=== PATIENT | male | born 1985 | race Two or more races ===

== ENCOUNTER 2017-05-31 20:02 | Inpatient (IN) | payer SELFPAY ==
[2017-05-31] MEDS: ONDANSETRON PF 4 MG/2 ML VIAL. IV ×2 (20:30→21:10)
[2017-05-31 20:33] LABS: BILIRUBIN,URINE NEGATIVE (NEG); CLARITY,URINE CLEAR; COLOR,URINE YELLOW; GLUCOSE,URINE >=1000 mg/dL (NEG); NITRITE,URINE NEGATIVE (NEG); PROTEIN,URINE NEGATIVE (NEG-TRACE); UROBILINOGEN,URINE 0.2 mg/dL (0.2 mg/dL)
[2017-05-31 20:38] LABS: BACTERIA,URINE 0 /HPF (0-FEW); RBC,URINE 0 /HPF (0-2); WBC,URINE 0 /HPF (0-4)
[2017-05-31 21:05] LABS: ADD MAN DIFF? NO
[2017-05-31 21:08] LABS: BASO % 0 % (0-3); EOS # 0.1 x10^3/uL (0.0-0.7); EOS % 1 % (0-3); HEMATOCRIT 43.7 % (39.0-53.0); HEMOGLOBIN 14.6 g/dL (13.0-17.5); LYMPH % 24 % (24-48); MEAN CORPUSCULAR HEMOGLOBIN 30 pg (25-35); MEAN CORPUSCULAR HGB CONC 33 g/dL (31-37); MEAN CORPUSCULAR VOLUME 88 fL (79-100); MONO # 0.6 x10^3/uL (0.0-1.1); MONO % 7 % (0-9); NEUT # 5.4 x10^3uL (1.8-7.7); NEUT % 67 % (31-73); PLATELET COUNT 245 x10^3/uL (140-400); RED BLOOD COUNT 4.94 x10^6/uL (4.30-5.70); RED CELL DISTRIBUTION WIDTH 14.2 % (11.5-14.5); WHITE BLOOD COUNT 8.1 x10^3/uL (4.0-11.0)
[2017-05-31] MEDS: PANTOPRAZOLE IV PUSH 40 MG VIAL. IVP (21:10)
[2017-05-31] MEDS: LIDO:MAALOX:DONNATAL 1:1:1 15 ML SINGLE DOSE SWSW (21:10)
[2017-05-31] MEDS: MORPHINE SULFATE 4 MG/ML DISP.SYRIN. IV (21:11)
[2017-05-31] MEDS: IV NORMAL SALINE 1000ML BAG 1,000 ML IV ×2 (21:12→22:59)
[2017-05-31 21:14] LABS: ANION GAP 9 (6-14); BLOOD UREA NITROGEN 23 mg/dL (8-26); BUN/CREATININE RATIO 26 (6-20); CALCIUM 9.1 mg/dL (8.5-10.1); CARBON DIOXIDE 26 mmol/L (21-32); CHLORIDE 102 mmol/L (98-107); CREATININE 0.9 mg/dL (0.7-1.3); GFR 99.1; GLUCOSE 308 mg/dL (70-99); POTASSIUM 4.4 mmol/L (3.5-5.1); SODIUM 137 mmol/L (136-145)
[2017-05-31 21:21] LABS: ALBUMIN 3.9 g/dL (3.4-5.0); ALBUMIN/GLOBULIN RATIO 1.1 (1.0-1.7); ALK PHOS 110 U/L (46-116); ALT (SGPT) 215 U/L (16-63); AST (SGOT) 242 U/L (15-37); LIPASE 89 U/L (73-393); TOTAL PROTEIN 7.6 g/dL (6.4-8.2)
[2017-05-31] MEDS ORDERED: ACETAMINOPHEN 325 MG TABLET. PO (22:30)
[2017-05-31] MEDS ORDERED: PIP/TAZO PER PHARMACY MC (22:30)
[2017-05-31] MEDS: PIPERACILLIN/TAZOBACTAM 3.375 GM in IV NORMAL SALINE 50ML 50 ML IV (22:59)
[2017-05-31 23:56] LABS: POC GLUCOSE 268 mg/dL (70-99)
[2017-06-01] MEDS: fentaNYL PF VIAL 100 MCG/2 ML VIAL IV ×5 (00:24→18:36)
[2017-06-01] MEDS: PIPERACILLIN/TAZOBACTAM 3.375 GM in IV NORMAL SALINE 50ML 50 ML IV ×3 (05:27→20:58)
[2017-06-01] MEDS: IV NORMAL SALINE 1000ML BAG 1,000 ML IV ×2 (05:28→14:21)
[2017-06-01 07:51] LABS: ADD MAN DIFF? NO
[2017-06-01 07:57] LABS: BASO % 1 % (0-3); EOS # 0.1 x10^3/uL (0.0-0.7); EOS % 2 % (0-3); HEMATOCRIT 41.8 % (39.0-53.0); HEMOGLOBIN 13.9 g/dL (13.0-17.5); LYMPH # 1.7 x10^3/uL (1.0-4.8); LYMPH % 35 % (24-48); MEAN CORPUSCULAR HEMOGLOBIN 30 pg (25-35); MEAN CORPUSCULAR HGB CONC 33 g/dL (31-37); MEAN CORPUSCULAR VOLUME 89 fL (79-100); MONO # 0.4 x10^3/uL (0.0-1.1); MONO % 8 % (0-9); NEUT # 2.6 x10^3uL (1.8-7.7); NEUT % 55 % (31-73); PLATELET COUNT 229 x10^3/uL (140-400); RED BLOOD COUNT 4.69 x10^6/uL (4.30-5.70); RED CELL DISTRIBUTION WIDTH 14.2 % (11.5-14.5); WHITE BLOOD COUNT 4.8 x10^3/uL (4.0-11.0)
[2017-06-01 08:09] LABS: ANION GAP 8 (6-14); BLOOD UREA NITROGEN 17 mg/dL (8-26); CALCIUM 8.3 mg/dL (8.5-10.1); CARBON DIOXIDE 25 mmol/L (21-32); CHLORIDE 105 mmol/L (98-107); CREATININE 0.7 mg/dL (0.7-1.3); GFR 132.4; GLUCOSE 221 mg/dL (70-99); POTASSIUM 4.2 mmol/L (3.5-5.1); SODIUM 138 mmol/L (136-145)
[2017-06-01] MEDS: ONDANSETRON PF 4 MG/2 ML VIAL. IV ×2 (08:27→14:11)
[2017-06-01] MEDS: LACTOBACILLUS RHAMNOSUS GG 1 CAPSULE. PO ×2 (09:00→21:01)
[2017-06-01 11:53] LABS: POC GLUCOSE 183 mg/dL (70-99)
[2017-06-01 11:53] LABS: POC GLUCOSE 209 mg/dL (70-99)
[2017-06-01] MEDS ORDERED: LIDOCAINE 1% PF 2 ML VIAL. ID (12:00)
[2017-06-01] MEDS ORDERED: fentaNYL PF VIAL 100 MCG/2 ML VIAL IV (12:00)
[2017-06-01] MEDS ORDERED: ONDANSETRON PF 4 MG/2 ML VIAL. IV ×2 (12:00→13:15)
[2017-06-01] MEDS ORDERED: NON FORMULARY ITEM (Melatonin 3 MG) PO (13:00)
[2017-06-01] MEDS ORDERED: traMADol 50 MG TABLET PO (13:15)
[2017-06-01] MEDS ORDERED: DEXTROSE 50% 25 GM / 50ML DISP.SYRIN. IV ×2 (13:15→18:15)
[2017-06-01] MEDS ORDERED: ACETAMINOPHEN 325 MG TABLET. PO (13:15)
[2017-06-01] MEDS ORDERED: hydrALAZINE 20 MG/ML VIAL. IVP (13:15)
[2017-06-01] MEDS: carBAMazepine 200 MG TABLET PO ×2 (14:00→20:56)
[2017-06-01] MEDS ORDERED: PNEUMOCOCCAL VAX SCREEN BY RX. MC (14:00)
[2017-06-01] MEDS: LISINOPRIL 10 MG TABLET PO (14:00)
[2017-06-01] MEDS: MORPHINE SULFATE 4 MG/ML DISP.SYRIN. IV ×3 (14:11→19:00)
[2017-06-01] MEDS ORDERED: SURGICEL HEMOSTAT 4X8 EACH. (15:30)
[2017-06-01] MEDS ORDERED: fentaNYL PF VIAL 100 MCG/2 ML VIAL (15:40)
[2017-06-01] MEDS ORDERED: PROPOFOL 20 ML IV (15:40)
[2017-06-01] MEDS ORDERED: ROCURONIUM 50 MG/5 ML VIAL. (15:40)
[2017-06-01] MEDS ORDERED: SUCCINYLCHOLINE 200 MG/10 ML VIAL. (15:40)
[2017-06-01] MEDS: IV RINGERS,LACTATED 1000ML 1,000 ML IV (16:08)
[2017-06-01 16:14] LABS: POC GLUCOSE 166 mg/dL (70-99)
[2017-06-01] MEDS ORDERED: INSULIN ASPART 300 UNITS/3 ML INSULN.PEN SQ (16:30)
[2017-06-01 16:31] LABS: POC GLUCOSE 162 mg/dL (70-99)
[2017-06-01] MEDS ORDERED: DEXAMETHASONE SOD PHOS 20 MG/5 ML VIAL. (16:57)
[2017-06-01] MEDS ORDERED: DESFLURANE 31 TO 60 MINUTES IH (16:57)
[2017-06-01] MEDS ORDERED: diphenhydrAMINE 50 MG/ML VIAL ×2 (16:57→17:10)
[2017-06-01] MEDS ORDERED: ONDANSETRON PF 4 MG/2 ML VIAL. (16:57)
[2017-06-01] MEDS: IOHEXOL 300 MG/ML 100ML VIAL. (16:58)
[2017-06-01] MEDS: BUPIVACAINE-EPI 0.25%-1:200000 50 ML VIAL. (16:58)
[2017-06-01] MEDS: GLUCAGON,HUMAN RECOMBINANT 1 MG/ML VIAL. (16:58)
[2017-06-01] MEDS: INSULIN ASPART 300 UNITS/3 ML INSULN.PEN SQ (17:00)
[2017-06-01] MEDS ORDERED: GLYCOPYRROLATE 1 MG/5 ML VIAL. (17:07)
[2017-06-01 18:10] LABS: POC GLUCOSE 209 mg/dL (70-99)
[2017-06-01] MEDS ORDERED: 0.9 % SODIUM CHLORIDE 10 ML DISP.SYRIN. IV (18:15)
[2017-06-01] MEDS: PROCHLORPERAZINE 10 MG/2 ML VIAL. IV (18:17)
[2017-06-01] MEDS: HYDROmorphone 2 MG/ML VIAL IV ×5 (18:25→20:02)
[2017-06-01] MEDS: INSULIN ASPART 100 UNIT/ML 10ML VIAL. SQ (18:45)
[2017-06-01] MEDS ORDERED: INSULIN REGULAR 100 UNIT/ML 3ML VIAL. IV (18:45)
[2017-06-01] MEDS: oxyCODONE/APAP 5/325 1 TAB TABLET PO (20:56)
[2017-06-01] MEDS: DOCUSATE SODIUM 100 MG CAPSULE. PO (20:57)
[2017-06-01] MEDS: diphenhydrAMINE 50 MG/ML VIAL IV (20:57)
[2017-06-01] MEDS: INSULIN GLARGINE 300 UNITS/3 ML INSULN.PEN. SQ (21:00)
[2017-06-01] MEDS ORDERED: NON FORMULARY ITEM (Insulin Detemir (Levemir) 12 UNIT) SQ (21:00)
[2017-06-01 21:04] LABS: POC GLUCOSE 176 mg/dL (70-99)
[2017-06-01] MEDS: diphenhydrAMINE HCL 25 MG CAPSULE PO (21:13)
[2017-06-02] MEDS: PIPERACILLIN/TAZOBACTAM 3.375 GM in IV NORMAL SALINE 50ML 50 ML IV ×5 (00:08→22:57)
[2017-06-02] MEDS: oxyCODONE/APAP 5/325 1 TAB TABLET PO ×4 (01:39→21:33)
[2017-06-02 04:25] LABS: ADD MAN DIFF? NO
[2017-06-02 04:29] LABS: BASO % 0 % (0-3); EOS % 0 % (0-3); HEMATOCRIT 40.9 % (39.0-53.0); HEMOGLOBIN 13.8 g/dL (13.0-17.5); LYMPH % 15 % (24-48); MEAN CORPUSCULAR HEMOGLOBIN 30 pg (25-35); MEAN CORPUSCULAR HGB CONC 34 g/dL (31-37); MEAN CORPUSCULAR VOLUME 89 fL (79-100); MONO # 0.3 x10^3/uL (0.0-1.1); MONO % 4 % (0-9); NEUT # 5.8 x10^3uL (1.8-7.7); NEUT % 81 % (31-73); PLATELET COUNT 213 x10^3/uL (140-400); RED BLOOD COUNT 4.58 x10^6/uL (4.30-5.70); RED CELL DISTRIBUTION WIDTH 13.9 % (11.5-14.5); WHITE BLOOD COUNT 7.1 x10^3/uL (4.0-11.0)
[2017-06-02 04:55] LABS: ANION GAP 7 (6-14); BLOOD UREA NITROGEN 16 mg/dL (8-26); CALCIUM 9.2 mg/dL (8.5-10.1); CARBON DIOXIDE 28 mmol/L (21-32); CHLORIDE 102 mmol/L (98-107); CREATININE 0.9 mg/dL (0.7-1.3); GFR 99.1; GLUCOSE 299 mg/dL (70-99); POTASSIUM 4.5 mmol/L (3.5-5.1); SODIUM 137 mmol/L (136-145)
[2017-06-02 05:01] LABS: ALBUMIN 3.3 g/dL (3.4-5.0); ALK PHOS 119 U/L (46-116); ALT (SGPT) 526 U/L (16-63); AST (SGOT) 208 U/L (15-37); DIRECT BILIRUBIN 1.6 mg/dL (0.0-0.2); LIPASE 63 U/L (73-393); TOTAL PROTEIN 6.3 g/dL (6.4-8.2)
[2017-06-02 07:53] LABS: POC GLUCOSE 238 mg/dL (70-99)
[2017-06-02] MEDS: LISINOPRIL 10 MG TABLET PO (07:56)
[2017-06-02] MEDS: carBAMazepine 200 MG TABLET PO ×2 (07:57→21:35)
[2017-06-02] MEDS: DOCUSATE SODIUM 100 MG CAPSULE. PO ×2 (07:57→21:33)
[2017-06-02] MEDS: LACTOBACILLUS RHAMNOSUS GG 1 CAPSULE. PO ×2 (07:58→21:33)
[2017-06-02] MEDS: ENOXAPARIN 40 MG/0.4 ML SYRINGE. SQ (07:59)
[2017-06-02] MEDS: INSULIN ASPART 300 UNITS/3 ML INSULN.PEN SQ ×3 (08:06→17:31)
[2017-06-02] MEDS ORDERED: ENOXAPARIN 40 MG/0.4 ML SYRINGE. SQ (09:00)
[2017-06-02 10:22] LABS: INR 1.1 (0.8-1.1); PROTHROMBIN TIME PATIENT 13.2 SEC (11.7-14.0)
[2017-06-02] MEDS: MORPHINE SULFATE 4 MG/ML DISP.SYRIN. IV ×2 (11:04→15:57)
[2017-06-02] MEDS: PANTOPRAZOLE IV PUSH 40 MG VIAL. IVP (11:04)
[2017-06-02 11:49] LABS: POC GLUCOSE 217 mg/dL (70-99)
[2017-06-02] MEDS: PNEUMOC CONJ VACC 23-VALENT 0.5 ML VIAL. VAX IM (11:56)
[2017-06-02] MEDS: ONDANSETRON PF 4 MG/2 ML VIAL. IV ×2 (14:12→20:23)
[2017-06-02 17:15] LABS: POC GLUCOSE 152 mg/dL (70-99)
[2017-06-02] MEDS: INSULIN GLARGINE 300 UNITS/3 ML INSULN.PEN. SQ (21:00)
[2017-06-02 21:03] LABS: POC GLUCOSE 155 mg/dL (70-99)
[2017-06-02] MEDS: PROCHLORPERAZINE 10 MG/2 ML VIAL. IM (22:49)
[2017-06-02] MEDS: SIMETHICONE 80 MG TAB.CHEW PO (22:50)
[2017-06-03] MEDS: PIPERACILLIN/TAZOBACTAM 3.375 GM in IV NORMAL SALINE 50ML 50 ML IV ×3 (05:36→18:34)
[2017-06-03] MEDS: IV RINGERS,LACTATED 1000ML 1,000 ML IV (05:37)
[2017-06-03] MEDS ORDERED: fentaNYL PF VIAL 100 MCG/2 ML VIAL IV ×2 (07:00)
[2017-06-03] MEDS ORDERED: ONDANSETRON PF 4 MG/2 ML VIAL. IV (07:00)
[2017-06-03] MEDS ORDERED: PROCHLORPERAZINE 10 MG/2 ML VIAL. IV (07:00)
[2017-06-03] MEDS ORDERED: MORPHINE SULFATE 4 MG/ML DISP.SYRIN. IV (07:00)
[2017-06-03] MEDS ORDERED: LIDOCAINE 1% PF 2 ML VIAL. ID (07:00)
[2017-06-03 07:30] LABS: POC GLUCOSE 156 mg/dL (70-99)
[2017-06-03] MEDS: INSULIN ASPART 300 UNITS/3 ML INSULN.PEN SQ ×3 (08:00→18:03)
[2017-06-03] MEDS: DOCUSATE SODIUM 100 MG CAPSULE. PO ×2 (08:44→21:16)
[2017-06-03] MEDS: ENOXAPARIN 40 MG/0.4 ML SYRINGE. SQ (09:00)
[2017-06-03] MEDS: LACTOBACILLUS RHAMNOSUS GG 1 CAPSULE. PO ×2 (09:00→21:16)
[2017-06-03] MEDS: POLYETHYLENE GLYCOL 3350 17 GM PACKET. PO (09:00)
[2017-06-03] MEDS: PANTOPRAZOLE IV PUSH 40 MG VIAL. IVP (09:04)
[2017-06-03] MEDS: MORPHINE SULFATE 4 MG/ML DISP.SYRIN. IV ×4 (09:04→22:42)
[2017-06-03 09:08] LABS: ADD MAN DIFF? NO
[2017-06-03] MEDS: ONDANSETRON PF 4 MG/2 ML VIAL. IV ×2 (09:28→15:34)
[2017-06-03 09:29] LABS: BASO % 0 % (0-3); EOS # 0.1 x10^3/uL (0.0-0.7); EOS % 1 % (0-3); HEMATOCRIT 40.8 % (39.0-53.0); HEMOGLOBIN 13.5 g/dL (13.0-17.5); LYMPH # 1.6 x10^3/uL (1.0-4.8); LYMPH % 25 % (24-48); MEAN CORPUSCULAR HEMOGLOBIN 30 pg (25-35); MEAN CORPUSCULAR HGB CONC 33 g/dL (31-37); MEAN CORPUSCULAR VOLUME 89 fL (79-100); MONO # 0.4 x10^3/uL (0.0-1.1); MONO % 7 % (0-9); NEUT # 4.1 x10^3uL (1.8-7.7); NEUT % 67 % (31-73); PLATELET COUNT 210 x10^3/uL (140-400); RED BLOOD COUNT 4.57 x10^6/uL (4.30-5.70); RED CELL DISTRIBUTION WIDTH 14.1 % (11.5-14.5); WHITE BLOOD COUNT 6.2 x10^3/uL (4.0-11.0)
[2017-06-03 10:24] LABS: HCV ANTIBODY <0.1 s/co ratio (0.0-0.9); HEP A IGM ABDY Negative (Negative); HEP B SURFACE AG Negative (Negative)
[2017-06-03 10:37] LABS: ALBUMIN 3.2 g/dL (3.4-5.0); ALBUMIN/GLOBULIN RATIO 0.9 (1.0-1.7); ALK PHOS 134 U/L (46-116); ALT (SGPT) 456 U/L (16-63); ANION GAP 11 (6-14); AST (SGOT) 166 U/L (15-37); BLOOD UREA NITROGEN 8 mg/dL (8-26); BUN/CREATININE RATIO 11 (6-20); CALCIUM 8.5 mg/dL (8.5-10.1); CARBON DIOXIDE 27 mmol/L (21-32); CHLORIDE 104 mmol/L (98-107); CREATININE 0.7 mg/dL (0.7-1.3); GFR 132.4; GLUCOSE 165 mg/dL (70-99); POTASSIUM 3.7 mmol/L (3.5-5.1); SODIUM 142 mmol/L (136-145); TOTAL BILIRUBIN 3.8 mg/dL (0.2-1.0); TOTAL PROTEIN 6.6 g/dL (6.4-8.2)
[2017-06-03 11:34] LABS: POC GLUCOSE 135 mg/dL (70-99)
[2017-06-03] MEDS: carBAMazepine 200 MG TABLET PO ×2 (13:37→21:16)
[2017-06-03 14:00] LABS: POC GLUCOSE 152 mg/dL (70-99)
[2017-06-03] MEDS: LISINOPRIL 10 MG TABLET PO (14:28)
[2017-06-03 16:36] LABS: POC GLUCOSE 269 mg/dL (70-99)
[2017-06-03] MEDS: PROCHLORPERAZINE 10 MG/2 ML VIAL. IV (21:21)
[2017-06-03] MEDS: INSULIN GLARGINE 300 UNITS/3 ML INSULN.PEN. SQ (21:27)
[2017-06-03] MEDS: oxyCODONE/APAP 5/325 1 TAB TABLET PO (22:38)
[2017-06-04] MEDS: PIPERACILLIN/TAZOBACTAM 3.375 GM in IV NORMAL SALINE 50ML 50 ML IV ×4 (00:40→16:49)
[2017-06-04 04:47] LABS: ADD MAN DIFF? NO
[2017-06-04 04:55] LABS: BASO % 0 % (0-3); EOS # 0.1 x10^3/uL (0.0-0.7); EOS % 2 % (0-3); HEMATOCRIT 37.1 % (39.0-53.0); HEMOGLOBIN 12.6 g/dL (13.0-17.5); LYMPH # 2.1 x10^3/uL (1.0-4.8); LYMPH % 41 % (24-48); MEAN CORPUSCULAR HEMOGLOBIN 30 pg (25-35); MEAN CORPUSCULAR HGB CONC 34 g/dL (31-37); MEAN CORPUSCULAR VOLUME 89 fL (79-100); MONO # 0.4 x10^3/uL (0.0-1.1); MONO % 7 % (0-9); NEUT # 2.6 x10^3uL (1.8-7.7); NEUT % 50 % (31-73); PLATELET COUNT 207 x10^3/uL (140-400); RED BLOOD COUNT 4.16 x10^6/uL (4.30-5.70); RED CELL DISTRIBUTION WIDTH 14.3 % (11.5-14.5); WHITE BLOOD COUNT 5.2 x10^3/uL (4.0-11.0)
[2017-06-04 05:23] LABS: ALBUMIN 2.9 g/dL (3.4-5.0); ALBUMIN/GLOBULIN RATIO 0.9 (1.0-1.7); ALK PHOS 147 U/L (46-116); ALT (SGPT) 343 U/L (16-63); ANION GAP 5 (6-14); AST (SGOT) 72 U/L (15-37); BLOOD UREA NITROGEN 7 mg/dL (8-26); BUN/CREATININE RATIO 9 (6-20); CALCIUM 8.7 mg/dL (8.5-10.1); CARBON DIOXIDE 31 mmol/L (21-32); CHLORIDE 105 mmol/L (98-107); CREATININE 0.8 mg/dL (0.7-1.3); GFR 113.5; GLUCOSE 134 mg/dL (70-99); POTASSIUM 3.5 mmol/L (3.5-5.1); SODIUM 141 mmol/L (136-145); TOTAL PROTEIN 6.3 g/dL (6.4-8.2)
[2017-06-04] MEDS: MORPHINE SULFATE 4 MG/ML DISP.SYRIN. IV (05:58)
[2017-06-04 07:46] LABS: POC GLUCOSE 107 mg/dL (70-99)
[2017-06-04] MEDS: DOCUSATE SODIUM 100 MG CAPSULE. PO ×3 (07:55→20:51)
[2017-06-04] MEDS: INSULIN ASPART 300 UNITS/3 ML INSULN.PEN SQ ×3 (07:55→16:55)
[2017-06-04] MEDS: LACTOBACILLUS RHAMNOSUS GG 1 CAPSULE. PO ×3 (07:56→20:51)
[2017-06-04] MEDS: POLYETHYLENE GLYCOL 3350 17 GM PACKET. PO ×2 (07:56→16:39)
[2017-06-04] MEDS: PANTOPRAZOLE IV PUSH 40 MG VIAL. IVP (08:01)
[2017-06-04] MEDS: ENOXAPARIN 40 MG/0.4 ML SYRINGE. SQ (09:00)
[2017-06-04] MEDS: LISINOPRIL 10 MG TABLET PO (09:00)
[2017-06-04] MEDS ORDERED: DEXAMETHASONE SOD PHOS 20 MG/5 ML VIAL. (09:32)
[2017-06-04] MEDS ORDERED: ONDANSETRON PF 4 MG/2 ML VIAL. (09:32)
[2017-06-04] MEDS ORDERED: SUCCINYLCHOLINE 200 MG/10 ML VIAL. (09:32)
[2017-06-04] MEDS ORDERED: PROPOFOL 20 ML IV (09:32)
[2017-06-04] MEDS ORDERED: LIDOCAINE 1% PF 5 ML VIAL. (09:32)
[2017-06-04] MEDS ORDERED: IOHEXOL 300 MG/ML 100ML VIAL. (09:36)
[2017-06-04] MEDS: IOHEXOL 300 MG/ML 50 ML VIAL. INT CAT (10:06)
[2017-06-04] MEDS: oxyCODONE/APAP 5/325 1 TAB TABLET PO ×3 (12:11→20:52)
[2017-06-04] MEDS: carBAMazepine 200 MG TABLET PO ×2 (12:12→20:51)
[2017-06-04 12:18] LABS: POC GLUCOSE 115 mg/dL (70-99)
[2017-06-04] MEDS: SIMETHICONE 80 MG TAB.CHEW PO (16:40)
[2017-06-04 16:47] LABS: POC GLUCOSE 246 mg/dL (70-99)
[2017-06-04] MEDS: ONDANSETRON PF 4 MG/2 ML VIAL. IV (19:55)
[2017-06-04] MEDS: INSULIN GLARGINE 300 UNITS/3 ML INSULN.PEN. SQ (20:56)
[2017-06-04 20:57] LABS: POC GLUCOSE 222 mg/dL (70-99)
[2017-06-05] MEDS: PIPERACILLIN/TAZOBACTAM 3.375 GM in IV NORMAL SALINE 50ML 50 ML IV ×4 (00:09→17:04)
[2017-06-05] MEDS: oxyCODONE/APAP 5/325 1 TAB TABLET PO ×4 (01:46→14:43)
[2017-06-05 03:18] LABS: POC GLUCOSE 216 mg/dL (70-99)
[2017-06-05] MEDS: ONDANSETRON ODT 4 MG TAB.RAPDIS. PO ×2 (06:33→14:55)
[2017-06-05] MEDS: PANTOPRAZOLE IV PUSH 40 MG VIAL. IVP (07:38)
[2017-06-05] MEDS: ONDANSETRON PF 4 MG/2 ML VIAL. IV (07:43)
[2017-06-05 07:55] LABS: POC GLUCOSE 320 mg/dL (70-99)
[2017-06-05] MEDS: INSULIN ASPART 300 UNITS/3 ML INSULN.PEN SQ ×3 (08:03→17:15)
[2017-06-05] MEDS: LACTOBACILLUS RHAMNOSUS GG 1 CAPSULE. PO (08:55)
[2017-06-05] MEDS: DOCUSATE SODIUM 100 MG CAPSULE. PO (08:55)
[2017-06-05] MEDS: LISINOPRIL 10 MG TABLET PO (08:55)
[2017-06-05] MEDS: carBAMazepine 200 MG TABLET PO (08:55)
[2017-06-05] MEDS: ENOXAPARIN 40 MG/0.4 ML SYRINGE. SQ (08:56)
[2017-06-05 11:31] LABS: POC GLUCOSE 204 mg/dL (70-99)
[2017-06-05 16:20] LABS: POC GLUCOSE 185 mg/dL (70-99)
== END 2017-06-05 17:41 | disposition home or self-care (01) | DRG 419 ==
LOC: ER 20:02 → 5 NORTH 21:11
PROC: 0FT44ZZ Resection of Gallbladder, Percutaneous Endoscopic Approach (ICD-10-PCS; principal; 2017-06-01 15:00)
PROC: BF131ZZ Fluoroscopy of Gallbladder and Bile Ducts using Low Osmolar Contrast (ICD-10-PCS; 2017-06-01 15:00)
PROC: 0F798ZZ Dilation of Common Bile Duct, Via Natural or Artificial Opening Endoscopic (ICD-10-PCS; 2017-06-01 16:43)
DX: K80.00 Calculus of gallbladder with acute cholecystitis without obstruction (principal); E10.9 Type 1 diabetes mellitus without complications; F15.10 Other stimulant abuse, uncomplicated; F17.210 Nicotine dependence, cigarettes, uncomplicated; G43.909 Migraine, unspecified, not intractable, without status migrainosus; G50.0 Trigeminal neuralgia; I10 Essential (primary) hypertension; F12.10 Cannabis abuse, uncomplicated; K21.9 Gastro-esophageal reflux disease without esophagitis; K66.0 Peritoneal adhesions (postprocedural) (postinfection); Z79.4 Long term (current) use of insulin; Z80.1 Family history of malignant neoplasm of trachea, bronchus and lung; Z82.49 Family history of ischemic heart disease and other diseases of the circulatory system; Z83.3 Family history of diabetes mellitus; Z88.8 Allergy status to other drugs, medicaments and biological substances; Z88.6 Allergy status to analgesic agent; Z91.041 Radiographic dye allergy status; Z90.49 Acquired absence of other specified parts of digestive tract
CPT/HCPCS: 36415; 74176; 74300; 74328; 76705; 80048; 80053; 80074; 80076; 81001; 82962; 83690; 85025; 85610; 88304; 90732; 96374; 96375; 99285; 99285-25; C1726; C9113; J0330; J0690; J0780; J1100; J1170; J1200; J1610; J1650; J1815; J2270; J2405; J2543; J2704; J3010; J3490; J7030; J7120; Q0162; Q0163; Q9967

== ENCOUNTER 2017-09-21 13:33 | Emergency (ER) | payer SELFPAY | END 2017-09-21 15:46 | disposition home or self-care (01) | LOC: ER 15:46 | DX: S60.031A Contusion of right middle finger without damage to nail, initial encounter (principal); G43.909 Migraine, unspecified, not intractable, without status migrainosus; E11.40 Type 2 diabetes mellitus with diabetic neuropathy, unspecified; Z88.5 Allergy status to narcotic agent; Z88.8 Allergy status to other drugs, medicaments and biological substances; Z91.041 Radiographic dye allergy status; W23.0XXA Caught, crushed, jammed, or pinched between moving objects, initial encounter; Y93.89 Activity, other specified; Y99.8 Other external cause status; Y92.89 Other specified places as the place of occurrence of the external cause | CPT/HCPCS: 73130; 99284 ==

== ENCOUNTER 2019-06-06 08:29 | Emergency (ER) | payer BC ==
[~2019-06-06] VITALS: Ht 188 cm; Wt 130.0 kg
[~2019-06-06 08:29] MED LIST: ACET500T68 PO; AMOX1TAB58 PO; CARB200T PO; DIPH50CA PO; GUAI600T47 PO; IBUP100O25 PO; INSU100I17 SQ; INSU100V13 SQ; LISI10TA2 PO; MELA3TAB4 PO
[2019-06-06 08:35] VITALS: BP 156/90
[2019-06-06] MEDS ORDERED: KETOROLAC 60 MG/2 ML VIAL. IM ONE (09:00)
[2019-06-06] MEDS ORDERED: CYCL10TA2 PO (09:11)
[2019-06-06] MEDS ORDERED: Percogesic PO (09:11)
--- NOTE | 2019-06-06 09:13 | PHYS DOC ---
Past Medical History Past Medical History: Diabetes-Type I, Migraines Additional Past Medical Histor: trigeminal neurolgia, neuropathy Past Surgical History: Cholecystectomy, Tonsillectomy Smoking Status: Current Every Day Smoker Alcohol Use: None Drug Use: Marijuana, Methamphetamine Social History Narrative: Patient is sober x 2 years General Adult EDM: Chief Complaint: BACK PAIN OR INJURY HPI: HPI: Patient is a 33 year old male with history of migraine headache, diabetes mellitus, previous drug addiction who presented with complaining of back pain. 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 Patient rated his pain 8/10 and denies left lower extremity weakness or numbness. Patient denies urinary bowel incontinence and abdominal pain, fever and chills, nausea and vomiting, diarrhea and constipation. Review of Systems: Review of Systems: Constitutional: Denies fever or chills. [] Eyes: Denies change in visual acuity. [] HENT: Denies nasal congestion or sore throat. [] Respiratory: Denies cough or shortness of breath. [] Cardiovascular: Denies chest pain or edema. [] GI: Denies abdominal pain, nausea, vomiting, bloody stools or diarrhea. [] : Denies dysuria. [] Musculoskeletal: Reports back and joint pain Integument: Denies rash. [] Neurologic: Denies headache, focal weakness or sensory changes. [] Endocrine: Denies polyuria or polydipsia. [] Lymphatic: Denies swollen glands. [] Psychiatric: Denies depression or anxiety. [] Heart Score: Risk Factors: Risk Factors: DM, Current or recent (<one month) smoker, HTN, HLP, family history of CAD, obesity. Risk Scores: Score 0 - 3: 2.5% MACE over next 6 weeks - Discharge Home Score 4 - 6: 20.3% MACE over next 6 weeks - Admit for Clinical Observation Score 7 - 10: 72.7% MACE over next 6 weeks - Early Invasive Strategies Allergies: Allergies: Allergies Coded Allergies Type Severity Reaction Last Updated Verified Iodinated Contrast- Oral and IV Dye Allergy Intermediate Nausea 09/21/17 Yes baclofen Allergy Intermediate Hives 09/21/17 Yes gabapentin Allergy Intermediate Hives 09/21/17 Yes naproxen Allergy Intermediate Hives 09/21/17 Yes Physical Exam: PE: Constitutional: Well developed, well nourished, mild distress, non-toxic appearance. [] HENT: Normocephalic, atraumatic. Eyes: PERRLA, EOMI, conjunctiva normal, no discharge. [] Neck: Normal range of motion, no tenderness, supple, no stridor. [] Cardiovascular:Heart rate regular rhythm, no murmur [] Lungs & Thorax: Bilateral breath sounds clear to auscultation [] Abdomen: Bowel sounds normal, soft, no tenderness, no masses, no pulsatile masses. [] Skin: Warm, dry, no erythema, no rash. [] Back: No midline tenderness, left paraspinal muscle spasm , no CVA tenderness. [] Extremities: No tenderness, no cyanosis, no clubbing, ROM intact, no edema. [] Neurologic: Alert and oriented X 3, no focal deficits noted. [] Psychologic: Affect normal, judgement normal, mood normal. [] Current Patient Data: Vital Signs: Vital Signs Date Time Temp Pulse Resp B/P (MAP) Pulse Ox O2 Delivery O2 Flow Rate FiO2 06/06/19 08:35 98.3 89 16 156/90 (112) 96 Room Air 98.3 EKG: EKG: [] Radiology/Procedures: Radiology/Procedures: [] Course & Med Decision Making: Course & Med Decision Making Evaluation of patient in ER showed 33-year-old male patient with complaining of low back pain since yesterday after lifting weight with radiation to posterior of his thigh. Patient had painful range of motion of lumbar spine with muscle spasm in left side. Plan to discharge patient home with diagnosis of sciatica and lumbosacral muscle strain and instruction to apply ice on his back and follow-up with his primary care physician. I've spoken with the patient and/or caregivers. I've explained the patient's condition, diagnosis and treatment plan based on information available to me at this time. I've answered the patient's and/or caregivers questions and addressed any concerns. The patient and/or caregivers have a good understanding the patient's diagnosis, condition and treatment plan as can be expected at this point. Vital signs have been stabilized. The patient's condition is stable for discharge from the emergency department. The patient will pursue further outpatient evaluation with her primary care provider or other designated consulting physician as outlined in the discharge instructions. Patient and/or caregivers are agreeable to this plan of care and follow-up instructions have been explained in detail. The patient and/or caregivers have received these instructions in written format and expressed understanding of these discharge instructions. The patient and her caregivers are aware that if any significant change in condition or worsening of symptoms should prompt him to immediately return to this of the closest emergency department. If an emergent department is not readily available I would encourage him to call 911. Jenifer Disclaimer: Dragjimmy Disclaimer: This electronic medical record was generated, in whole or in part, using a voice recognition dictation system. Departure Departure Impression: Primary Impression: Sciatica Qualified Codes: M54.32 - Sciatica, left side Additional Impression: Acute lumbosacral myofascial strain Qualified Codes: S39.012A - Strain of muscle, fascia and tendon of lower back, initial encounter Disposition: HOME, SELF-CARE (At 0 [phone]) Condition: STABLE Referrals: MONTY GALEAS PA-C (PCP) Patient Instructions: Lumbosacral Strain, Sciatica Additional Instructions: Apply ice on your back Follow-up with your primary care physician in 3-5 days Return to ER if not getting better Scripts [Percogesic] No Conflict Check 1 TAB PO QID PRN for PAIN, #14 Prov: GISELA FOOTE MD 06/06/19 Cyclobenzaprine Hcl (CYCLOBENZAPRINE HCL) 10 Mg Tablet 1 TAB PO TID, #21 TAB Prov: GISELA FOOTE MD 06/06/19 GISELA FOOTE MD Jun 06, 2019 09:13
== END 2019-06-06 09:25 | disposition home or self-care (01) ==
LOC: ER 08:29
DX: S39.012A Strain of muscle, fascia and tendon of lower back, initial encounter (principal); M54.42 Lumbago with sciatica, left side; E10.40 Type 1 diabetes mellitus with diabetic neuropathy, unspecified; G43.909 Migraine, unspecified, not intractable, without status migrainosus; F17.210 Nicotine dependence, cigarettes, uncomplicated; F12.90 Cannabis use, unspecified, uncomplicated; F15.90 Other stimulant use, unspecified, uncomplicated; Z88.1 Allergy status to other antibiotic agents; Z88.6 Allergy status to analgesic agent; Z88.8 Allergy status to other drugs, medicaments and biological substances; W17.89XA Other fall from one level to another, initial encounter; Y93.89 Activity, other specified; Y92.89 Other specified places as the place of occurrence of the external cause; Y99.8 Other external cause status
CPT/HCPCS: 96372; 99283; J1885

== ENCOUNTER 2019-10-03 15:23 | Emergency (ER) | payer BC ==
[~2019-10-03] VITALS: Ht 188 cm; Wt 127.0 kg
[~2019-10-03 15:23] MED LIST changes: +CYCL10TA2 PO; +Percogesic PO
[2019-10-03 15:30] VITALS: BP 126/75
--- NOTE | 2019-10-03 16:13 | PHYS DOC ---
Past Medical History Past Medical History: Diabetes-Type I, Migraines Additional Past Medical Histor: trigeminal neurolgia, neuropathy Past Surgical History: Cholecystectomy, Tonsillectomy Smoking Status: Current Every Day Smoker Alcohol Use: None Drug Use: Marijuana, Methamphetamine General Adult EDM: Chief Complaint: TOE PROBLEM HPI: HPI: Patient is a 34 year old male who presents to the emergency department with complaints of continued pain in his right great toe. Patient reports he was seen at [facility] 2 weeks ago and diagnosed with an ingrown toe nail. He states that he has a appointment with [facility] on October [id number] for treatment of the infected toenail. He denies any recent fever, or body aches. Patient states that his toe has become more painful and has been throbbing for 3 days he denies any injury to the toe. He currently rates the pain a 9 out of 10 on the pain scale, he denies radiation of the pain, he denies any alleviating factors, the pain is worse with weightbearing and palpation. Review of Systems: Review of Systems: Constitutional: Denies fever or chills. [] Musculoskeletal: See HPI Integument: See HPI Neurologic: Denies focal weakness or sensory changes. [] Endocrine: Denies polyuria or polydipsia. [] Psychiatric: Denies depression or anxiety. [] Heart Score: Risk Factors: Risk Factors: DM, Current or recent (<one month) smoker, HTN, HLP, family history of CAD, obesity. Risk Scores: Score 0 - 3: 2.5% MACE over next 6 weeks - Discharge Home Score 4 - 6: 20.3% MACE over next 6 weeks - Admit for Clinical Observation Score 7 - 10: 72.7% MACE over next 6 weeks - Early Invasive Strategies Allergies: Allergies: Allergies Coded Allergies Type Severity Reaction Last Updated Verified Iodinated Contrast Media Allergy Intermediate Nausea 09/21/17 Yes baclofen Allergy Intermediate Hives 09/21/17 Yes gabapentin Allergy Intermediate Hives 09/21/17 Yes naproxen Allergy Intermediate Hives 09/21/17 Yes Physical Exam: PE: Constitutional: Well developed, well nourished, no acute distress, non-toxic appearance, obese. [] HENT: Normocephalic, atraumatic, bilateral external ears normal, nose normal. [] Eyes: PERRLA, EOMI, conjunctiva normal, no discharge. [] Neck: Normal range of motion, no stridor. [] Cardiovascular:Heart rate regular rhythm Lungs & Thorax: Respirations even and unlabored, no retractions, no respiratory distress Skin: Warm, dry; erythema of the medial nailbed of the right great toe, without fluctuance, concerning for localized cellulitis and ingrown toenail. Minimal swelling, no streaking of erythema up the leg, no warmth. Extremities: Right lower extremity: 2+ pedal pulse, no cyanosis, ROM intact, no edema. [] Neurologic: Alert and oriented X 3, no focal deficits noted. [] Psychologic: Affect normal, judgement normal, mood normal. [] Current Patient Data: Vital Signs: Vital Signs Date Time Temp Pulse Resp B/P (MAP) Pulse Ox O2 Delivery O2 Flow Rate FiO2 10/03/19 15:30 99.0 92 15 126/75 (92) 94 Room Air 99.0 EKG: EKG: [] Radiology/Procedures: Radiology/Procedures: [] Course & Med Decision Making: Course & Med Decision Making Pertinent Labs and Imaging studies reviewed. (See chart for details) I advised the patient that he has an ingrown toenail and the best option is for him to see the director mba on Friday as planned. He denied any fever, drainage, or injury to the toe. He complained of pain. I recommended that the patient soak the affected foot in Epson salt soaks as needed for comfort. He may take tylenol or ibuprofen as needed for pain. I advised him to keep his appointment with [facility] on 10/05/19 and encouraged him to apply antibiotic ointment to the affected area twice a day. The patient left before he received written instructions. Rachelon Disclaimer: Jenifer Disclaimer: This electronic medical record was generated, in whole or in part, using a voice recognition dictation system. Departure Departure Impression: Primary Impression: Ingrown toenail of left foot Disposition: 01 HOME, SELF-CARE Condition: STABLE Referrals: KENAN FINLEY DO (PCP) Patient Instructions: Ingrown Toenail Additional Instructions: Recommend epsom salt soaks, may take tylenol or ibuprofen as needed for pain. Keep your appointment with [facility] on 10/05/19. May apply antibiotic ointment to red area twice daily. Justicifation of Admission Dx: Justifications for Admission: Justification of Admission Dx: N/A ABDIAS RANDOLPH DRUG ABUSE RESISTANCE EDUCATION OFFICER Oct 03, 2019 16:13
== END 2019-10-03 16:05 | disposition home or self-care (01) ==
LOC: ER 15:23
DX: L60.0 Ingrowing nail (principal); R60.0 Localized edema; E10.9 Type 1 diabetes mellitus without complications; G43.909 Migraine, unspecified, not intractable, without status migrainosus; F17.200 Nicotine dependence, unspecified, uncomplicated; F12.90 Cannabis use, unspecified, uncomplicated; F19.90 Other psychoactive substance use, unspecified, uncomplicated; Z90.89 Acquired absence of other organs; Z90.49 Acquired absence of other specified parts of digestive tract; Z91.040 Latex allergy status; Z88.8 Allergy status to other drugs, medicaments and biological substances
CPT/HCPCS: 99282

== ENCOUNTER 2019-11-21 12:01 | Emergency (ER) | payer BC ==
[~2019-11-21] VITALS: Ht 188 cm; Wt 127.0 kg
[2019-11-21 12:01] VITALS: BP 142/76
[2019-11-21] MEDS ORDERED: INSU100C4 SQ (12:22)
[2019-11-21] MEDS ORDERED: INSU100V6 SQ (12:26)
--- NOTE | 2019-11-21 12:28 | PHYS DOC ---
Past Medical History Past Medical History: Diabetes-Type I, Migraines Additional Past Medical Histor: trigeminal neurolgia, neuropathy Past Surgical History: Cholecystectomy, Tonsillectomy Smoking Status: Current Every Day Smoker Alcohol Use: None Drug Use: Marijuana, Methamphetamine General Adult EDM: Chief Complaint: MEDICATION REFILL HPI: HPI: Patient is a 34 year old male who presents to the emergency department with request for a refill of his insulin. Patient states he takes 20 units of regular insulin before each meal and he has been out of his insulin since yesterday. Patient denies any fever, cough, shortness of breath, nausea, vomiting, diarrhea, abdominal pain, headache, body aches, or hyperglycemia. The patient states he needs his insulin so he can eat. He denies any pain. Review of Systems: Review of Systems: Complete ROS is negative unless otherwise stated in the HPI. Heart Score: Risk Factors: Risk Factors: DM, Current or recent (<one month) smoker, HTN, HLP, family history of CAD, obesity. Risk Scores: Score 0 - 3: 2.5% MACE over next 6 weeks - Discharge Home Score 4 - 6: 20.3% MACE over next 6 weeks - Admit for Clinical Observation Score 7 - 10: 72.7% MACE over next 6 weeks - Early Invasive Strategies Allergies: Allergies: Allergies Coded Allergies Type Severity Reaction Last Updated Verified Iodinated Contrast Media Allergy Intermediate Nausea 09/21/17 Yes baclofen Allergy Intermediate Hives 09/21/17 Yes gabapentin Allergy Intermediate Hives 09/21/17 Yes naproxen Allergy Intermediate Hives 09/21/17 Yes Physical Exam: PE: Constitutional: Well developed, well nourished, no acute distress, non-toxic appearance. [] HENT: Normocephalic, atraumatic, bilateral external ears normal, nose normal. [] Eyes: PERRLA, EOMI, conjunctiva normal, no discharge. [] Neck: Normal range of motion, no stridor. [] Cardiovascular:Heart rate regular rhythm Lungs & Thorax: Respirations even and unlabored, no retractions, no respiratory distress Skin: Warm, dry, no erythema, no rash. [] Extremities: No cyanosis, ROM intact, no edema. [] Neurologic: Alert and oriented X 3, no focal deficits noted. [] Psychologic: Affect normal, judgement normal, mood normal. [] Current Patient Data: Labs: Laboratory Tests Test 11/21/19 12:10 Glucose (Fingerstick) 214 mg/dL (70-99) H Vital Signs: Vital Signs Date Time Temp Pulse Resp B/P (MAP) Pulse Ox O2 Delivery O2 Flow Rate FiO2 11/21/19 12:01 98.8 76 16 142/76 (98) 97 Room Air 98.8 EKG: EKG: [] Radiology/Procedures: Radiology/Procedures: [] Course & Med Decision Making: Course & Med Decision Making Pertinent Labs and Imaging studies reviewed. (See chart for details) 34-year-old male presented to the emergency department with request for refill of his regular insulin. Patient's blood sugar in the emergency department was 214, vital signs are stable, patient denied any complaints. Prescription written for NovoLog 20 units with meals. I encouraged patient to follow-up with his primary care doctor for future refills of this medication, return to the ER if symptoms worsen. Patient verbalized an understanding of home care, medications, follow-up, and return to ED instructions and was in agreement with the plan of care. Dragon Disclaimer: Dragon Disclaimer: This electronic medical record was generated, in whole or in part, using a voice recognition dictation system. Departure Departure Impression: Primary Impression: Medication refill Disposition: HOME, SELF-CARE Condition: STABLE Referrals: KENAN FINLEY DO (PCP) Patient Instructions: Medication Refill, Emergency Department Additional Instructions: Fill the prescription and take it as directed. Follow-up with your primary care doctor for future refills, return to the ER if symptoms worsen. Scripts Insulin Lispro (HUMALOG) 100 Unit/1 Ml Vial 20 UNIT SQ TIDWMEALS for 30 Days, #1 VIAL 0 Refills Prov: ABDIAS RANDOLPH ENERGY OPERATIONS VICE PRESIDENT 11/21/19 ABDIAS RANDOLPH ENERGY OPERATIONS VICE PRESIDENT Nov 21, 2019 12:28
== END 2019-11-21 12:30 | disposition home or self-care (01) ==
LOC: ER 12:01
DX: Z76.0 Encounter for issue of repeat prescription (principal); G43.909 Migraine, unspecified, not intractable, without status migrainosus; E10.40 Type 1 diabetes mellitus with diabetic neuropathy, unspecified; F17.200 Nicotine dependence, unspecified, uncomplicated; F12.90 Cannabis use, unspecified, uncomplicated; F19.90 Other psychoactive substance use, unspecified, uncomplicated; Z90.49 Acquired absence of other specified parts of digestive tract; Z90.89 Acquired absence of other organs; Z91.041 Radiographic dye allergy status; Z88.8 Allergy status to other drugs, medicaments and biological substances; Z88.6 Allergy status to analgesic agent
CPT/HCPCS: 82962; 99283

== ENCOUNTER 2020-04-14 14:30 | Emergency (ER) | payer BC ==
[~2020-04-14] VITALS: Ht 185.4 cm; Wt 137.8 kg
[~2020-04-14 14:30] MED LIST changes: +INSU100C4 SQ; +INSU100V6 SQ; +LISI10TA16 PO; -LISI10TA2 PO
[2020-04-14] MEDS ORDERED: NEOMY/BACITR/POLYMYXIN OINT PACKET. TP ONE (16:30)
[2020-04-14] MEDS ORDERED: CLIN150C15 PO (16:39)
--- NOTE | 2020-04-14 16:40 | ED.ADGEN ---
Past Medical History Past Medical History: Bipolar, Diabetes-Type I, Migraines Additional Past Medical Histor: trigeminal neurolgia, neuropathy Past Surgical History: Cholecystectomy, Tonsillectomy Additional Past Surgical Histo: I&D abcess in colon Smoking Status: Current Every Day Smoker Additional Information: 02/18 ppd Alcohol Use: None Drug Use: Marijuana, Methamphetamine General Adult EDM: Chief Complaint: SUTURE/STAPLE REMOVAL HPI: HPI: Patient is a 34 year old male who presents emergency department for suture removal. Patient reports that he had sutures to his left lower extremity done on March 312020 at another facility. Patient reports that he was told to have the sutures removed today. He states there has been some drainage from the site but denies any fever, numbness, tingling, or decreased sensation. Patient currently denies any pain Review of Systems: Review of Systems: Complete ROS is negative unless otherwise noted in HPI. Current Medications: Current Medications Medications (Trade) Dose Ordered Sig/Melvi Start Time Stop Time Status Last Admin Dose Admin Neomycin/ Polymyxin/ Bacitracin (Triple Antibiotic Ointment) 1 pkt 1X ONCE 04/14/20 16:30 04/14/20 16:31 DC Allergies: Allergies: Allergies Coded Allergies Type Severity Reaction Last Updated Verified Iodinated Contrast Media Allergy Intermediate Nausea 04/14/20 Yes Physical Exam: PE: See Above Constitutional: Well developed, well nourished, no acute distress, non-toxic appearance. [] HENT: Normocephalic, atraumatic, bilateral external ears normal, nose normal. [] Eyes: PERRLA, EOMI, conjunctiva normal, no discharge, obese. [] Neck: Normal range of motion, no stridor. [] Cardiovascular:Heart rate regular rhythm Lungs & Thorax: Respirations even and unlabored, no retractions, no respiratory distress Skin: Warm, dry; healing wound to the lateral lower left extremity with [address], there is moderate erythema about the wound edges and some purulent drainage with localized edema Extremities: No cyanosis, ROM intact, no edema. [] Neurologic: Alert and oriented X 3, normal motor, normal sensory, no focal deficits noted. [] Psychologic: Affect normal, judgement normal, mood normal. [] Current Patient Data: Vital Signs: Vital Signs Date Time Temp Pulse Resp B/P (MAP) Pulse Ox O2 Delivery O2 Flow Rate FiO2 04/14/20 15:19 97.3 82 16 122/62 (82) 96 Room Air 97.3 EKG: EKG: [] Heart Score: Risk Factors: Risk Factors: DM, Current or recent (<one month) smoker, HTN, HLP, family history of CAD, obesity. Risk Scores: Score 0 - 3: 2.5% MACE over next 6 weeks - Discharge Home Score 4 - 6: 20.3% MACE over next 6 weeks - Admit for Clinical Observation Score 7 - 10: 72.7% MACE over next 6 weeks - Early Invasive Strategies Radiology/Procedures: Radiology/Procedures: Indication: Sutures of lower left extremity Procedure: The patient was placed in the appropriate position and a total of 16 sutures were removed without difficulty. There was a moderate softening of tissue at the wound edges, no wound dehiscence, no bleeding. The patient tolerated the procedure well. Complications: None. Course & Med Decision Making: Course & Med Decision Making Pertinent Labs and Imaging studies reviewed. (See chart for details) [] Dragon Disclaimer: Jenifer Disclaimer: This electronic medical record was generated, in whole or in part, using a voice recognition dictation system. Departure Departure Impression: Primary Impression: Encounter for removal of sutures Additional Impression: Wound of left lower extremity Disposition: 01 DC HOME SELF CARE/HOMELESS Condition: STABLE Referrals: MACIEL CONNELLY DO Patient Instructions: Suture Removal-Brief, Wound Infection, [id number] Additional Instructions: Fill the prescription and use as directed. [facility] for further evaluation and treatment of your wound, their phone number is .Return to the ER if your symptoms worsen or a fever develops. Scripts Clindamycin Hcl (CLINDAMYCIN HCL) 150 Mg Capsule 450 MG PO TID for 7 Days, #63 CAP 0 Refills Prov: ABDIAS RANDOLPH APRN 04/14/20 Problem Qualifiers Additional Impression: Wound of left lower extremity Encounter type: initial encounter Qualified Codes: S81.802A - Unspecified open wound, left lower leg, initial encounter ABDIAS RANDOLPH AUTO ENGINE MECHANIC Apr 14, 2020 16:40
[2020-04-14 16:45] VITALS: BP 134/73
== END 2020-04-14 16:53 | disposition home or self-care (01) ==
LOC: ER 14:30
DX: S81.802A Unspecified open wound, left lower leg, initial encounter (principal); F31.9 Bipolar disorder, unspecified; E10.40 Type 1 diabetes mellitus with diabetic neuropathy, unspecified; G43.909 Migraine, unspecified, not intractable, without status migrainosus; F17.200 Nicotine dependence, unspecified, uncomplicated; Z91.041 Radiographic dye allergy status; X58.XXXA Exposure to other specified factors, initial encounter; Y93.89 Activity, other specified; Y92.89 Other specified places as the place of occurrence of the external cause; Y99.8 Other external cause status
CPT/HCPCS: 99283